=== PATIENT | male | born 1995 | race Caucasian/White ===

== ENCOUNTER 2023-08-12 05:34 | Outpatient (CLI) | payer MEDICAID, SELFPAY ==
[2023-08-12] MEDS: Inhaler, Assist Device 1 EACH MC (11:19)
[2023-08-12] MEDS: Levalbuterol HFA 15 GM INH 4 PUFF IH (11:19)
--- NOTE | 2023-08-12 13:33 | W.PFT ---
Date of service: 08/12/23 Time of Service: 08:07 Pulmonary Function Test Result Indications: Dyspnea Interpretation Spirometry: There is no airflow limitation.There is no bronchodilator response. Lung Volumes: Normal lung volumes. Diffusion Capacity: Normal diffusion. Airway Pressure: Normal airways resistance. Impression Normal pulmonary function testing. Clinical Correlation therefore is recommended.
== END 2023-08-12 05:35 | disposition home or self-care (01) ==
LOC: RT 05:34
PROVIDERS: PCP Physician Assistant Medical; Visit Provider Physician Assistant Medical
DX: R06.00 Dyspnea, unspecified (principal)
CPT/HCPCS: 94060; 94726; 94729

== ENCOUNTER → 2023-08-13 03:30 | Outpatient (CLI) | payer MEDICAID, SELFPAY ==
--- NOTE | 2023-08-13 | DI.MRI_ITS ---
Exam(s) MR BRAIN WO EXAM: MR BRAIN WO CLINICAL HISTORY: G93.5 Compression of brain TECHNIQUE: Multiplanar multisequence MRI of the brain was performed. COMPARISON: MR MRI Brain w/o Contrast from 12/29/2019 FINDINGS: VENTRICLES AND EXTRA AXIAL SPACES: Normal in size and morphology for the patient's age. Incidental m ega cisterna magna. MIDLINE SHIFT: None. CEREBRAL PARENCHYMA: No focus of restricted diffusion to suggest acute infarct. No space-occupying le zen identified. Mild atrophy consistent with the patient's age. Mild scattered foci of high signal in the white matter consistent with sequela of chronic microvascular disease. HEMORRHAGE: None. BRAINSTEM/CEREBELLUM: Cerebellar tonsils extend inferiorly, just below the foramen magnum. No eviden ce of compression. VISUALIZED PARANASAL SINUSES/MASTOIDS:Clear. Vasculature: Normal flow void. PITUITARY GLAND: Unremarkable. ORBITS: Unremarkable. IMPRESSION: Chiari 1 malformation again noted. No evidence of brainstem compression. DATA REPOSITORY:
== END ==
PROVIDERS: PCP Physician Assistant Medical; Visit Provider Physician Assistant Medical
DX: G93.5 Compression of brain (principal)
CPT/HCPCS: 70551